=== PATIENT | female | born 2000 | race Caucasian/White ===

== ENCOUNTER 2024-03-15 14:09 | Emergency (ER) | payer OTHER ==
[2024-03-15 14:22] VITALS: RESP 18; BMI 26.7
[2024-03-15] MEDS ORDERED: ONDANSETRON 4 MG/2 ML VIAL ONE (15:44)
[2024-03-15] MEDS ORDERED: ACETAMINOPHEN INJECTION 100 ML ONE (15:44)
[2024-03-15] MEDS: ONDANSETRON 4 MG/2 ML VIAL IVPUSH ONE (16:19)
[2024-03-15] MEDS: SODIUM CHLORIDE 1,000 ML IV STA (16:19)
[2024-03-15] MEDS: ACETAMINOPHEN 1000 MG/100 ML BAG IVPB ONE (16:19)
[2024-03-15 16:28] LABS: BASO % 0.2 % (0-2.0); EOS % 0.1 % (0-4.5); HEMATOCRIT 40.6 % (32.4-45.2); HEMOGLOBIN 13.7 GM/dL (10.7-15.3); LYMPH % 24.1 % (8-40); MCH 27.9 pg (25.7-33.7); MCHC 33.8 g/dl (32.0-36.0); MEAN CELL VOLUME 82.4 fl (80-96); MEAN PLT VOLUME 7.7 fl (7.5-11.1); MONO % 12.2 % (3.8-10.2); NEUT % 63.4 % (42.8-82.8); PLATELET COUNT 285 10^3/uL (134-434); RBC 4.93 M/mm3 (3.60-5.2); RDW 13.7 % (11.6-15.6)
[2024-03-15 16:33] LABS: HCG,QUALITATIVE URINE Negative
[2024-03-15 16:34] LABS: EPI CELLS >36 /uL (0-25.1); HYALINE CASTS 1 /uL (0-3.1); URINE APPEARANCE CLOUDY; URINE BACTERIA 7699 /uL (0-1359); URINE BILIRUBIN NEGATIVE (NEGATIVE); URINE COLOR YELLOW; URINE GLUCOSE (UA) NEGATIVE (NEGATIVE); URINE KETONE TRACE (NEGATIVE); URINE LEUK ESTERASE TRACE (NEGATIVE); URINE NITRITE NEGATIVE (NEGATIVE); URINE PROTEIN TRACE (NEGATIVE); URINE WBC 28 /uL (0-25.8)
[2024-03-15 16:42] LABS: POTASSIUM 3.5 mmol/L (3.5-5.1)
[2024-03-15 16:44] LABS: ALBUMIN 3.6 g/dl (3.4-5.0); CALCIUM 9.3 mg/dL (8.5-10.1)
[2024-03-15 16:46] LABS: BLOOD UREA NITROGEN 9.6 mg/dL (7-18)
[2024-03-15 16:48] LABS: CREATININE 0.7 mg/dL (0.55-1.3)
[2024-03-15 16:49] LABS: BILIRUBIN,TOTAL 0.3 mg/dL (0.2-1); TOT PROT 7.3 g/dl (6.4-8.2)
[2024-03-15 17:53] LABS: HIV INTERPRETATION NEGATIVE (NEGATIVE)
[2024-03-15] MEDS ORDERED: CEPHALEXIN MONOHYDRATE 500 MG CAPSULE (UD) ONE (17:58)
[2024-03-15 18:03] VITALS: BP 97/60; PULSE 86; TEMP 99.3
[2024-03-15] MEDS: CEPHALEXIN MONOHYDRATE 500 MG CAPSULE (UD) PO ONE (18:18)
== END 2024-03-15 18:19 | disposition home or self-care (01) ==
LOC: JER 14:09
PROC: 3E033GC Introduction of Other Therapeutic Substance into Peripheral Vein, Percutaneous Approach (ICD-10-PCS; principal; 2024-03-15)
DX: K52.9 Noninfective gastroenteritis and colitis, unspecified (principal); N30.00 Acute cystitis without hematuria; R11.2 Nausea with vomiting, unspecified; R10.13 Epigastric pain
CPT/HCPCS: 36415; 76705-TC; 80053; 81003; 83690; 84703; 85025; 86803; 87086; 87389; 99284-25

== ENCOUNTER 2025-03-07 23:37 | Emergency (ER) | payer OTHER ==
[2025-03-07 23:43] VITALS: BP 111/72; PULSE 80; RESP 18; TEMP 99; BMI 27.8
[2025-03-08] MEDS: ACETAMINOPHEN 500 MG TABLET (FP) PO ONE (00:31)
[2025-03-08] MEDS: LIDOCAINE 4% PATCH TP ONE (00:31)
[2025-03-08] MEDS ORDERED: ACETAMINOPHEN 500 MG TABLET (FP) ONE (00:33)
[2025-03-08] MEDS ORDERED: LIDOCAINE 4% PATCH TP ONE (00:33)
[2025-03-08] MEDS ORDERED: LIDOCAINE PATCH REMOVAL MC SCH (22:00)
== END 2025-03-08 01:58 | disposition home or self-care (01) ==
LOC: JER 23:37
DX: S49.92XA Unspecified injury of left shoulder and upper arm, initial encounter (principal); M54.2 Cervicalgia; M54.50 Low back pain, unspecified; V44.5XXA Car driver injured in collision with heavy transport vehicle or bus in traffic accident, initial encounter; Y92.410 Unspecified street and highway as the place of occurrence of the external cause
CPT/HCPCS: 73030-TC-LT-FY; 99283-25